=== PATIENT | female | born 1930 ===

== ENCOUNTER → 2017-10-03 | Outpatient (CLI) | payer OTHER ==
--- NOTE | 2017-10-03 09:11 | DIAGNOSTIC IMAGING REPORT ---
R KNEE 3 VIEWS CLINICAL HISTORY: CHRONIC B/L KNEE PAIN pain COMPARISON: None. DISCUSSION: Severe degenerative change medial joint compartment and patellofemoral joints both knees. Moderate degenerative changes lateral joint compartments. Moderate peripheral osteophytic change throughout. No significant joint effusions. There is no evidence for soft tissue swelling. IMPRESSION: Significant degenerative change of the medial and patellofemoral joint compartments bilaterally. Moderate degenerative change lateral joint compartments. The above report was generated using voice recognition software. It may contain grammatical, syntax or spelling errors. Electronically signed by: Shahab Jimenez M.D. 10/03/2017 9:10 AM Dictated Date/Time: 10/03/2017 9:09 AM
== END | disposition home or self-care (01) ==
LOC: C.RDSM 08:45
PROVIDERS: ATTEND Internal Medicine
DX: M25.561 Pain in right knee (principal); M25.562 Pain in left knee; Z88.7 Allergy status to serum and vaccine

== ENCOUNTER 2019-08-04 05:02 | Inpatient (IN) ==
--- NOTE | 2019-07-22 09:49 | PAT Medication Instructions ---
Medication Instructions Date of Service July 22, 2019 Home Medications acetaminophen [Tylenol Extra Strength] 500 mg PO UD PRN amlodipine 5 mg PO QAM colchicine [Colcrys] 0.6 mg PO QAM diphenhydramine HCl [Benadryl] 25 mg PO HS PRN ezetimibe 10 mg PO QAM febuxostat [Uloric] 80 mg PO QAM hydrochlorothiazide 12.5 mg PO QAM melatonin 1 tab PO HS prednisone 1 dose PO UD PRN losartan 100 mg PO QAM Continue as directed prednisone 1 dose PO UD PRN (if needed) STOP taking 24 hours before surgery colchicine [Colcrys] 0.6 mg PO QAM febuxostat [Uloric] 80 mg PO QAM DO NOT take the morning of surgery hydrochlorothiazide 12.5 mg PO QAM losartan 100 mg PO QAM Take morning of surgery With a small sip of water, OTHERWISE NOTHING TO EAT OR DRINK AFTER MIDNIGHT: acetaminophen [Tylenol Extra Strength] 500 mg PO UD PRN (okay to take up to 4 hours prior to surgery if needed) amlodipine 5 mg PO QAM ezetimibe 10 mg PO QAM Take evening before surgery acetaminophen [Tylenol Extra Strength] 500 mg PO UD PRN (if needed) diphenhydramine HCl [Benadryl] 25 mg PO HS PRN (if needed) melatonin 1 tab PO HS Other Notes If you have any questions please call us at [phone] or [phone] or [phone] or [phone]
--- NOTE | 2019-07-22 14:33 | Anesthesiology Consultation ---
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 Labs, CRX are WNL. RCRI score is 3.9% Low risk for intermediate risk surgery." Chart Review Chart Review: Acceptable Risk for Surgery and Patient seen in Pre Admission Testing Teaching & Discussion Instructed NPO after midnight before surgery, except medications with 15 cc of water. Medication instructions provided according to the PAT guidelines. History Surgery Operation Date: 08/04/19 08:50 Proposed Procedures p Left Total Knee Arthroplasty - Gagan Mcallister MD Height/Weight Height: 5 ft 1 in Weight: 87.6 kg Allergies Allergy/AdvReac Type Severity Reaction Status Date / Time allopurinol Allergy Unknown Hives Verified 07/19/19 10:20 Tetanus Vaccines and Toxoid Allergy Unknown REACTION Verified 07/19/19 10:20 AT SITE - REDNESS AND SWELLING Medications Home Medications Medication Instructions Recorded Confirmed Last Taken acetaminophen [Tylenol Extra 500 mg PO UD PRN 04/27/18 07/19/19 05/17/18 Strength] amlodipine 5 mg PO QAM 04/27/18 07/19/19 05/20/18 07:00 colchicine [Colcrys] 0.6 mg PO QAM 04/27/18 07/19/19 05/18/18 08:00 diphenhydramine HCl [Benadryl] 25 mg PO HS PRN 04/27/18 07/19/19 05/19/18 21:00 ezetimibe 10 mg PO QAM 04/27/18 07/19/19 05/20/18 07:00 febuxostat [Uloric] 80 mg PO QAM 04/27/18 07/19/19 05/20/18 07:00 hydrochlorothiazide 12.5 mg PO QAM 04/27/18 07/19/19 05/17/18 08:00 melatonin 1 tab PO HS 04/27/18 07/19/19 05/19/18 21:00 prednisone 1 dose PO UD PRN 04/27/18 07/19/19 Unknown losartan 100 mg PO QAM 07/19/19 07/19/19 Unknown Past Medical History Medical History GERD (gastroesophageal reflux disease) History of amputation of toe right, 2/2 gout. History of gout Hx of skin cancer, basal cell NOSE Hyperlipidemia Hypertension Osteoarthritis Stage 3 chronic kidney disease FOLLOWS W/ DR LINA PHILIPPE Exercise / Class Metabolic Activity II 4-5 Yardwork/Stairs/Walk up hill (Does stairs daily, denies CP, occ mild SOB with stairs.) Past Surgical History Surgical History History of hand surgery RT INDEX FINGER History of hysterectomy History of left shoulder replacement History of right shoulder replacement History of total right knee replacement 05/20/2018 [facility] Hx of bladder repair surgery PT REPORTS "FRONTAL REPAIR" BLADDER Hx of colonoscopy Hx of skin cancer, basal cell NOSE Hx of tubal ligation Past Anesthesia History No Hx of Anesthesia Complications and No Family Hx of Anesthesia Complications History of PONV No Hx of PONV and No Hx of Motion Sickness Social History Smoking Status: Never smoker Do You Dip or Chew Tobacco: No Hx Alcohol Use: No Hx Substance Use: No Review of Systems Pt denies any recent chest pain, shortness of breath, palpitations, cough, fever or URI. Physical Exam Vital Signs BP: 139/84 P: 79bpm SPO2: 93% RA T: 98.4 F R: 18 ENMT Mouth: + dental restorations (few crowns); no chipped teeth and no loose teeth Thyromental Distance: > or= 3.5 Finger Breadths (3.5) Mallampati Class: III Neck normal visual inspection; neck extension not limited Respiratory normal respiratory effort Auscultation: lungs clear to auscultation bilaterally Cardiovascular Rate/Rhythm: regular rate and regular rhythm Heart Sounds: no murmur Vessels: no carotid bruit Extremities: no edema Testing Laboratory Results 07/22/19 14:38 07/22/19 14:38 PT 9.9 Seconds (9.0-12.0) 07/22/19 14:38 INR 1.0 (0.9-1.1) 07/22/19 14:38 APTT 25.6 Seconds (21.0-31.0) 07/22/19 14:38 Urine Color Yellow 07/22/19 14:38 Urine Appearance Clear (Clear) 07/22/19 14:38 Urine pH 5.5 (4.5-7.5) 07/22/19 14:38 Ur Specific Mobile 1.023 (1.000-1.030) 07/22/19 14:38 Urine Protein Negative (Negative) 07/22/19 14:38 Urine Glucose (UA) Negative (Negative) 07/22/19 14:38 Urine Ketones Negative (Negative) 07/22/19 14:38 Urine Nitrite Negative (Negative) 07/22/19 14:38 Ur Leukocyte Esterase Negative (Negative) 07/22/19 14:38 Blood Type A Positive 07/22/19 14:38 Antibody Screen NEGATIVE 07/22/19 14:38 Electrocardiogram Date: 07/20/19 Findings: + NSR @ (76 with occasional PVCs) Possible LAE. Inferior infarct, age undetermined. Chest X-Ray Date: 07/22/19 Findings: + NAD Stress Test Date: 07/30/19 Type: exercise Resting EF: 70% Negative stress echocardiogram for ischemia at 103% MPHR. Above average exercise tolerance for age and gender, 135% of predicted, achieving 4.6 METs. Rest echo showed normal LV size and systolic function with no regional wall motion abnormalities. Mild concentric LVH.
--- NOTE | 2019-07-22 15:22 | XRay Report ---
XR chest Pre-admission PA/Lat CLINICAL HISTORY: Preoperative chest COMPARISON STUDY: No previous studies for comparison. FINDINGS: The cardiac and mediastinal contours remain stable. There were minor chronic interstitial p arenchymal opacities within the axillary portion of the right chest. There is no acute parenchymal co nsolidation. There is no failure. There are no pleural effusions. There are bilateral shoulder arthro plasties. IMPRESSION: No active disease in the chest. Electronically signed by: Paul Jimenez M.D. 07/22/2019 3:20 PM
[2019-07-22 16:04] LABS: Basophils # (auto) 0.03 K/uL (0-0.2); Basophils % (auto) 0.3 %; Eosinophils # (auto) 0.38 K/uL (0-0.5); Eosinophils % (auto) 4.1 %; Hematocrit (blood only) 42.2 % (37-47); Hemoglobin 14.1 g/dL (12.0-16.0); Immature Granulocytes # (auto) 0.03 K/uL (0.00-0.02); Immature Granulocytes % (auto) 0.3 %; Lymphocytes # (auto) 2.29 K/uL (1.2-3.4); Mean Corpuscular Hemoglobin 30.8 pg (25-34); Mean Corpuscular Hgb Conc 33.4 g/dL (32-36); Mean Corpuscular Volume 92.1 fL (80-100); Mean Platelet Volume 10.3 fL (7.4-10.4); Monocytes # (auto) 0.82 K/uL (0.11-0.59); Neutrophils # (auto) 5.61 K/uL (1.4-6.5); Neutrophils % (auto) 61.3 %; Platelet Count 280 K/uL (130-400); RDW Coefficient of Variation 13.2 % (11.5-14.5); RDW Standard Deviation 43.9 fL (36.4-46.3); Red Blood Count 4.58 M/uL (4.2-5.4); White Blood Count 9.16 K/uL (4.8-10.8)
[2019-07-22 16:13] LABS: BUN Creatinine Ratio 22.8 (10-20); Est GFR (African American) 62.4; Est GFR (Non-African American) 53.9; Potassium 3.5 mmol/L (3.5-5.1)
[2019-07-22 16:19] LABS: Appearance Urine Clear (Clear); Bilirubin Urine Negative (Negative); Blood Urine Negative (Negative); Color Urine Yellow; Glucose Urine UA Negative (Negative); Ketones Urine Negative (Negative); Leukocyte Esterase Urine Negative (Negative); Nitrite Urine Negative (Negative); Protein Urine Negative (Negative); Specific Gravity Urine 1.023 (1.000-1.030); Urobilinogen Urine Negative (Negative); pH Urine 5.5 (4.5-7.5)
[2019-07-22 16:20] LABS: Partial Thromboplastin Ratio 0.9; Partial Thromboplastin Time 25.6 Seconds (21.0-31.0); Prothrombin Time 9.9 Seconds (9.0-12.0)
--- NOTE | 2019-07-28 09:52 | History and Physical Report ---
DATE OF ADMISSION: 08/04/2019 CHIEF COMPLAINT: Left knee pain. HISTORY OF PRESENT ILLNESS: This 88-year-old white female presents to the office with complaints of left knee pain that has been ongoing for several years. She previously had a right total knee arthroplasty done on 05/20/2018. She has done very well with that. Her left knee pain has progressed and she then elects to proceed with the same on the left. She has tried cortisone injections, Tylenol, Tylenol with Codeine, viscosupplementation, and activity modification without improvement. Pain is affecting her ADLs. It is worse with weightbearing. Preoperative imaging has been obtained. PAST MEDICAL HISTORY: Significant for hypertension, elevated cholesterol, sleep apnea, gout, osteoarthritis, low back pain, GERD, obesity, basal cell skin cancer, and history of stage III kidney disease. PREVIOUS SURGERIES: Bilateral total shoulder arthroplasties 2006 and 2007, partial hysterectomy, tubal ligation, right toe amputation 2016, skin biopsies, right total knee arthroplasty 05/20/2018, Mohs surgery for her nose, finger surgery. ALLERGIES: KNOWN ALLERGY TO ALLOPURINOL AND TETANUS TOXOID. FAMILY HISTORY: Significant for cancer, heart disease, [place], and lung disease. SOCIAL HISTORY: The patient is retired. . No tobacco use. No ETOH use. CURRENT MEDICATIONS: Amlodipine 5 mg p.o. daily, amoxicillin prior to dental visits, Colcrys 0.6 mg p.o. p.r.n., ezetimibe 10 mg p.o. daily, HCTZ 25 mg p.o. daily, losartan unknown dose daily, prednisone 5 mg p.o. daily. REVIEW OF SYSTEMS: A total of 10 systems are reviewed and are significant only for above stated conditions. PHYSICAL EXAMINATION: VITAL SIGNS: Temperature 37.3, O2 sat 98% on room air, pulse 80, BP 122/76, weight 87.5 kg, height 155.5 cm. GENERAL: Well-developed, well-nourished elderly white female in no acute distress. Sitting in a chair. Alert and oriented. SKIN: Warm and dry with fair turgor. No rashes or lesions. No ecchymosis or erythema. No intraarticular effusion. HEENT: Normocephalic, atraumatic. Eyes PERRLA, EOMI. Nares patent bilaterally without turbinate enlargement. Oropharynx without erythema or exudate. No lesions noted. Uvula midline. Oral mucosa moist. Fair dentition. Multiple missing teeth. Multiple fillings. HEART: RRR. No MGR. LUNGS: Clear to auscultation bilaterally. No crackles, rhonchi or wheezing. Good air movement. ABDOMEN: Obese. Bowel sounds present x4, soft, nontender. No organomegaly. No masses. MUSCULOSKELETAL: Left knee evaluation reveals no intra-articular effusion. No redness or warmth. She has full terminal extension. Flexion to around 100 degrees. She does have crepitation with motion. There is focal discomfort with palpation over the medial and lateral joint lines. Stable collateral ligaments. No discomfort with palpation over the patellar tendon or quadriceps tendon. No defect. Intact motor function of the ankle. Ambulatory with an antalgic gait using her cane. Varus alignment. NEUROLOGIC: Cranial nerves II through XII are intact. Gross sensation is intact across left leg by soft touch. Peripheral pulses are 2+. DATA: Radiographic imaging previously obtained in April shows end-stage DJD of the left knee with varus deformity. Periarticular osteophytes, subchondral sclerosis, and joint space narrowing are all present. IMPRESSION: Left knee end-stage degenerative joint disease. PLAN: Postoperative prescriptions for Percocet and Coumadin will be provided at discharge from the hospital. Anticipate discharge to home with home health services. Preoperative lab work, EKG, and chest x-ray have been ordered. She already has seen her PCP for medical clearance. She already has a cane and walker. She did require use of a bulky dressing postoperatively with her last knee surgery. MTDD
[2019-08-04] MEDS ORDERED: ROPIVACAINE 0.5% HCL/PF 150 MG, BUPIVACAINE 0.5% MPF 30 ML, EPINEPHrine 0.15 MG, Ketoro... INFIL SCH (06:00)
[2019-08-04] MEDS ORDERED: CEFAZOLIN 2000MG 2,000 MG/15 ML SYR IV SCH (06:00)
[2019-08-04] MEDS ORDERED: LR 60ML/HR IV SCH (06:00)
[2019-08-04] MEDS ORDERED: LR 500ML BOLUS, THEN 15ML/HR IV SCH (06:00)
[2019-08-04] MEDS: TRANEXAMIC ACID 1,000 MG **IV Pre-op IV SCH ×2 (06:11→06:49)
--- NOTE | 2019-08-04 06:28 | History & Physical Bridge Note ---
Date of Service August 04, 2019 History & Physical Bridge Note I have examined the patient, reviewed the History & Physical and in the interval since the performance of the History & Physical I have noted the following changes of clinical significance:consent obtained. no changes noted
[2019-08-04] MEDS ORDERED: ORTHO JOINT ANESTHETIC ONE (06:38)
[2019-08-04] MEDS ORDERED: fentaNYL citrate 100 MCG/2 ML VIAL ONE (06:40)
[2019-08-04] MEDS ORDERED: MIDAZOLAM HCL 1 MG/ML 2ML VIAL ONE (06:40)
[2019-08-04] MEDS ORDERED: BUPIVACAINE 0.5 % 5 MG/1 ML PF 10ML VIAL ONE (06:41)
[2019-08-04] MEDS ORDERED: ROPIVACAINE 0.5% 5 MG/ML 30 ML VIAL ONE (06:41)
[2019-08-04] MEDS ORDERED: HYDROmorphone INJ 1 MG/ML SYRINGE IV PRN (06:48)
[2019-08-04] MEDS ORDERED: PHENYLEPHRINE 100MCG/ML 5ML SYR IV PRN (06:48)
[2019-08-04] MEDS ORDERED: ATROPINE SULFATE 0.1 MG/ML 10ML SYR IV PRN (06:48)
[2019-08-04] MEDS ORDERED: ePHEDrine sulfate 50 MG/ML AMP IV PRN (06:48)
[2019-08-04] MEDS ORDERED: ONDANSETRON INJ 2 MG/ML 2 ML VIAL IV PRN ×2 (06:48→09:54)
[2019-08-04] MEDS ORDERED: PHENYLEPHRINE 100MCG/ML 5ML SYR ONE (07:26)
[2019-08-04] MEDS ORDERED: PROPOFOL IV EMULSION 10 MG/ML 20 ML VIAL IV ONE (07:26)
[2019-08-04] MEDS ORDERED: ePHEDrine sulfate 50 MG/ML SYR ONE (07:26)
[2019-08-04] MEDS ORDERED: LIDOCAINE HCL 2% 2 ML VIAL/AMP(20MG/ML) INFIL ONE (07:26)
--- NOTE | 2019-08-04 08:29 | Post Operative Brief Note ---
Immediate Post Op Note v1 Date of Surgery August 04, 2019 Pre & Post Diagnosis Operation Date: 08/04/19 07:00 Pre-Op Diagnosis: Left Knee Degnerative Joint Disease Post-Op Diagnosis: Left Knee Degnerative Joint Disease I identified the patient and participated in the time-out.: Yes Procedure Operation Date: 08/04/19 07:00 Actual Procedures p Left Total Knee Arthroplasty(Left) - Gagan Mcallister MD Surgeon Gagan Mcallister MD Data Administrator [facility] Estimated Blood Loss 25 Findings Consistent with Post-Op Diagnosis
--- NOTE | 2019-08-04 08:40 | Operative Report ---
Post Operative Report Pre & Post Diagnosis Operation Date: 08/04/19 07:00 Pre-Op Diagnosis: Left Knee Degnerative Joint Disease Post-Op Diagnosis: Left Knee Degnerative Joint Disease I identified the patient and participated in the time-out.: Yes Procedure Operation Date: 08/04/19 07:00 Actual Procedures p Left Total Knee Arthroplasty(Left) - Gagan Mcallister MD Surgeon MADINA Mcallister MD Engineer Conductor cheryl Estimated Blood Loss 25 Findings Consistent with Post-Op Diagnosis Specimens see operative report Drains none Complications none Disposition Accompanied Patient To Recovery: Yes Disposition: Recovery Room Indications This 88-year-old white female presented to the office with complaints of intractable left knee pain. She had tried conservative care measures without improvement. She previously had a right total knee arthroplasty done just over a year ago. She has been doing well with it. She elected to proceed with the same on the left. Preoperative imaging was obtained. Description of Procedure Patient was administered a spinal anesthetic and then taken to the operating room where she was given sedation. She was prepped and draped in the usual sterile fashion. Please see Dr. Mcallister's operative report for specifics of the procedure. I was present for the entire case from initial patient po sitioning through final wound closure. Assistance was provided in tissue retraction, hemostasis, trial implant placement, final implant placement, and final wound closure. Patient was taken to the recovery room in satisfactory condition. I attest to the content of the Intraoperative Record and any orders documented therein. Any exceptions are noted below.
--- NOTE | 2019-08-04 09:04 | Operative Report ---
DATE OF OPERATION: 08/04/2019 SURGEON: Gagan Mcallister MD STOCK ROOM MANAGER: Andrew Hodges PA-C. No resident or fellow available. PREOPERATIVE DIAGNOSIS: Osteoarthritis, left knee. POSTOPERATIVE DIAGNOSIS: Osteoarthritis, left knee. OPERATION PERFORMED: Cemented left total knee replacement. SUMMARY OF IMPLANTS: Size 3 left femur, posterior cruciate substituting size 3 mobile bearing tray, size 38 patella 3 peg size tibial insert 3 x 10 posterior cruciate substituting, 2 bags of Palacos G cement. ESTIMATED BLOOD LOSS: 25 mL. CRYSTALLOID: Per anesthesia. TOURNIQUET TIME: 45 minutes. PERIOPERATIVE SITUATION: Medically cleared female with intractable knee pain. X-rays reveal end-stage disease with varus alignment, flexion contracture and wants to proceed with knee replacement. She had her other side done and has done well with that. DESCRIPTION OF PROCEDURE: The patient was appropriately identified, site verified, consent verified. Antibiotics confirmed as being given. Consent verified. TXA confirmed as being given. The left lower extremity was prepped and draped in usual routine fashion. Tourniquet inflated to 300 mmHg after exsanguination of limb with a rubber Esmarch bandage for a total of roughly 45 minutes. Midline exposure utilized. Parapatellar arthrotomy performed. Synovectomy completed, osteophytes resected. Distal femur entered. Cruciates resected. Tibia subluxated, menisci resected. Distal femur resected 14 mm, proximal tibia 4 mm, the extension gap was excellent. Final meniscal remnants were removed. The femur was sized to a 3, appropriate cutting block applied. Anterior and posterior condylar and chamfer cuts made. The flexion gap checked. It was excellent. The posterior capsule was then injected. The tibia was then broached and reamed to a size 3. Trial was placed on the femur and tibia with excellent stability and excellent tracking of the patella. The patella was then resected leaving 16 mm. A 38 mm button was applied after the seating holes made. It tracked well. All trial implants were then removed. The wound irrigated with Betadine and Pulsavac, the permanent cemented into position, tibia, femur and patella in that order. After 12 minutes, the tourniquet deflated. After 14 minutes, the knee flexed. No major cement removal was required. Wound was irrigated with Betadine and Pulsavac, permanent liner seated and then the knee closed at 40 degrees of flexion using #2 Vicryl, 2-0 Vicryl and stainless steel clips. Appropriate dressing applied as well as a Wilmer Gordon cotton dressing due to subcutaneous tissue thickness and the patient was transferred to recovery room in satisfactory condition having tolerated the procedure well. DVT prophylaxis with Coumadin. I attest to the content of the Intraoperative Record and any orders documented therein. Any exception s are noted below.
--- NOTE | 2019-08-04 09:19 | XRay Report ---
LEFT KNEE 2 VIEWS History: Left total knee arthroplasty. Degenerative arthritis. Postop. FINDINGS: The patient is status post a left total knee arthroplasty. The hardware is intact. No fract ure or dislocation. Skin santana are in place. IMPRESSION: Left total knee arthroplasty. No evidence for hardware complication. ACT 112: Negative or not required by law. Electronically signed by: Nino Cramer M.D. 08/04/2019 9:18 AM
--- NOTE | 2019-08-04 09:23 | Anesthesiology Progress Note ---
Date of Service August 04, 2019 Anesthesia Post Procedure Vital Signs Vital Signs: Temp Pulse Pulse Pulse Resp BP BP 08/04/19 09:20 36.3 C L 08/04/19 09:15 82 16 107/61 08/04/19 09:10 82 13 112/60 08/04/19 09:06 84 16 127/57 L 08/04/19 09:05 85 12 08/04/19 09:01 83 10 L 08/04/19 09:00 83 17 115/63 08/04/19 08:56 84 17 08/04/19 08:55 85 21 126/69 08/04/19 08:52 82 12 115/60 08/04/19 08:51 84 15 08/04/19 08:50 85 17 08/04/19 08:46 83 17 08/04/19 08:45 85 27 H 118/57 L 08/04/19 08:41 84 14 08/04/19 08:40 84 17 116/58 L 08/04/19 08:39 85 18 08/04/19 08:38 36.5 C 83 87 16 99/61 L 99/61 L 08/04/19 05:43 37 C 89 18 140/97 Pulse Ox 08/04/19 09:20 97 08/04/19 09:15 98 08/04/19 09:10 96 08/04/19 09:06 95 08/04/19 09:05 96 08/04/19 09:01 98 08/04/19 09:00 96 08/04/19 08:56 98 08/04/19 08:55 98 08/04/19 08:52 98 08/04/19 08:51 98 08/04/19 08:50 100 08/04/19 08:46 97 08/04/19 08:45 98 08/04/19 08:41 97 08/04/19 08:40 97 08/04/19 08:39 97 08/04/19 08:38 96 08/04/19 05:43 95 Pain Intensity Left Knee: Pain Intensity: 0 Transfer of Care Handoff Completed per policy Notes Mental Status: alert / awake / arousable Patient Amnestic to Procedure: Yes Nausea / Vomiting: adequately controlled Pain: adequately controlled Airway Patency, RR, SpO2: stable & adequate BP & HR: stable & adequate Hydration State: stable & adequate Neuraxial Anesthesia: was administered and sensory block is resolving Anesthetic Complications: no major complications apparent
[2019-08-04] MEDS ORDERED: MAGNESIUM HYDROXIDE SUSP 30 ML UDC PO PRN (09:54)
[2019-08-04] MEDS ORDERED: HYDROmorphone INJ 0.5 MG/0.5 ML SYR IV PRN (09:54)
[2019-08-04] MEDS ORDERED: NALOXONE HCL 0.4 MG/1 ML VIAL/CARP IV PRN (09:54)
[2019-08-04] MEDS ORDERED: SODIUM CHLORIDE 0.9% 1000ML 1,000 ML IV SCH (09:54)
[2019-08-04] MEDS ORDERED: ALUMINUM/MAGNESIUM SUSP 30 ML UDC PO PRN (09:54)
[2019-08-04] MEDS ORDERED: DiphenhydrAMINE HCL 50 MG/ML VIAL IV PRN (09:54)
[2019-08-04] MEDS ORDERED: METOCLOPRAMIDE HCL INJ 5 MG/ML 2 ML VIAL IV PRN (09:54)
[2019-08-04] MEDS ORDERED: bisacodyL 10 MG SUPP PR PRN (09:54)
[2019-08-04] MEDS: KETOROLAC TROMETHAMINE 15 MG/ML VIAL IV SCH ×3 (11:00→21:23)
[2019-08-04] MEDS: DOCUSATE SODIUM 100 MG CAP PO SCH ×2 (11:18→20:44)
[2019-08-04] MEDS: LOSARTAN POTASSIUM 50 MG TAB PO SCH (11:19)
[2019-08-04] MEDS: COLCHICINE 0.6 MG TAB PO SCH (11:19)
[2019-08-04] MEDS: EZETIMIBE 10 MG TABLET PO SCH (11:20)
[2019-08-04] MEDS: AMLODIPINE BESYLATE 5 MG TAB PO SCH (11:20)
[2019-08-04] MEDS: MULTIVITAMIN TAB PO SCH (11:21)
[2019-08-04] MEDS: hydroCHLOROthiazide 25 MG TAB PO SCH (11:21)
[2019-08-04] MEDS: FEBUXOSTAT 40 MG TABLET PO SCH (11:27)
--- NOTE | 2019-08-04 11:37 | Progress Note ---
DATE: 08/04/2019 SUBJECTIVE: Postop check status post left total knee replacement. The patient is doing well. Denies any chest pain, shortness of breath, fever, chills, nausea, vomiting or headache. OBJECTIVE: Vital signs are stable. She is afebrile. Neurovascular check is resolving, starting to get some active extension of her toes and ankle, can still not quite do a straight leg raise yet. Toes pink and warm. Wound dressing clean, dry and intact. Postop x-rays look excellent. ASSESSMENT: Overall, doing well. Continue with postop care pathway and prepare for discharge tomorrow.
--- NOTE | 2019-08-04 11:42 | Discharge Summary ---
Potential date of discharge is 08/05/2019. CHIEF COMPLAINT: Left knee pain. HISTORY OF PRESENT ILLNESS: The patient underwent elective left total knee replacement. She is doing well, has no major issues today. She notes her pain is well managed. She had a previous total knee done about a year ago. She has done well with that. PAST MEDICAL HISTORY: Remarkable for hypertension, elevated cholesterol, sleep apnea, gout, osteoarthritis, low back pain, GERD, obesity, basal cell skin cancer, history of stage III kidney disease. PAST SURGICAL HISTORY: Previous surgeries include bilateral total shoulder arthroplasties, partial hysterectomy, tubal ligation, toe amputation, skin biopsies, total knee arthroplasty, Mohs surgery. ALLERGIES: ALLOPURINOL, TETANUS TOXOID. FAMILY HISTORY: Remarkable for cancer, heart disease, [place] and lung disease. SOCIAL HISTORY: Reveals she is retired. . No tobacco or alcohol use. PREADMISSION MEDICATIONS: Include amlodipine, amoxicillin p.r.n., Colcrys, ezetimibe, hydrochlorothiazide, losartan, prednisone. REVIEW OF SYSTEMS: Reveals no chest pain, shortness of breath, fever, chills, nausea, vomiting or headache. CURRENT MEDICATIONS: We will add Coumadin to keep INR 1.8-2.2 and p.r.n. pain medication, see prescription. ASSESSMENT: Status post left total knee replacement. Postop x-rays look excellent. Continue with postop care pathway. Have case management review home needs and discharge tomorrow if she does well overnight.
[2019-08-04] MEDS: ACETAMINOPHEN 500 MG TAB PO SCH ×2 (13:49→21:22)
[2019-08-04] MEDS: CEFAZOLIN 2000MG 2,000 MG/15 ML SYR IV SCH ×2 (13:55→22:22)
[2019-08-04] MEDS: ORTHO WARFARIN NOMOGRAM SCH (14:37)
[2019-08-04] MEDS ORDERED: TRANEXAMIC ACID / 0.7% NACL 1,000 MG/100 ML BAG IV SCH (14:44)
[2019-08-04] MEDS ORDERED: WARFARIN SOD 5 MG TAB PO ONE (16:00)
[2019-08-04] MEDS: FERROUS GLUCONATE 324 MG TAB PO SCH (17:44)
[2019-08-04] MEDS: ASCORBIC ACID 500 MG TAB PO SCH (17:44)
[2019-08-04] MEDS: OXYCODONE HCL IR 5 MG TAB (IMMEDIATE RELEASE) PO PRN ×2 (20:43→21:23)
[2019-08-04] MEDS ORDERED: NON-FORMULARY MEDICATION (Melatonin 1 TAB) PO SCH (21:00)
[2019-08-04] MEDS ORDERED: SENNA 8.6 MG TAB PO SCH (21:00)
[2019-08-05] MEDS: ACETAMINOPHEN 500 MG TAB PO SCH (05:03)
[2019-08-05] MEDS: KETOROLAC TROMETHAMINE 15 MG/ML VIAL IV SCH (05:05)
[2019-08-05 05:57] LABS: Hematocrit (blood only) 36.5 % (37-47); Hemoglobin 12.3 g/dL (12.0-16.0); Mean Corpuscular Hemoglobin 30.7 pg (25-34); Mean Corpuscular Hgb Conc 33.7 g/dL (32-36); Platelet Count 254 K/uL (130-400); RDW Coefficient of Variation 13.1 % (11.5-14.5); RDW Standard Deviation 43.7 fL (36.4-46.3); Red Blood Count 4.01 M/uL (4.2-5.4); White Blood Count 15.68 K/uL (4.8-10.8)
[2019-08-05 06:09] LABS: Prothrombin Time 10.5 Seconds (9.0-12.0)
[2019-08-05 06:25] LABS: BUN Creatinine Ratio 21.3 (10-20); Calcium 9.1 mg/dl (8.5-10.1); Creatinine Clr Calc Pharmacy 31.7 ml/min; Est GFR (African American) 45.2; Potassium 3.9 mmol/L (3.5-5.1)
--- NOTE | 2019-08-05 07:18 | Progress Note ---
DATE: 08/05/2019 SUBJECTIVE: Postop day #1 status post left total knee replacement. The patient is comfortable. Denies any chest pain, shortness of breath, fever, chills, nausea, vomiting or headache. OBJECTIVE: Vital signs are stable. She is afebrile. INR is subtherapeutic. Hematocrit stable at 36. Wound dressing clean, dry and intact. Neurovascular check is normal. ASSESSMENT: Doing well. Discharge to home today. Coumadin per nomogram. Give dose before leaving. Follow up in 2 weeks for staple removal.
[2019-08-05] MEDS ORDERED: WARFARIN SOD 5 MG TAB PO ONE (07:30)
[2019-08-05 07:54] VITALS: PULSE 71; TEMP 98.1; O2SAT 93
[2019-08-05] MEDS ORDERED: dexAMETHasone 10 MG in SYRINGE 0 ML IV SCH (08:00)
[2019-08-05] MEDS: FERROUS GLUCONATE 324 MG TAB PO SCH (08:42)
[2019-08-05] MEDS: ASCORBIC ACID 500 MG TAB PO SCH (08:43)
[2019-08-05] MEDS: DOCUSATE SODIUM 100 MG CAP PO SCH (08:43)
[2019-08-05] MEDS: COLCHICINE 0.6 MG TAB PO SCH (08:43)
[2019-08-05] MEDS: MULTIVITAMIN TAB PO SCH (08:44)
[2019-08-05] MEDS: hydroCHLOROthiazide 25 MG TAB PO SCH (08:44)
[2019-08-05] MEDS: AMLODIPINE BESYLATE 5 MG TAB PO SCH (08:45)
[2019-08-05] MEDS: FEBUXOSTAT 40 MG TABLET PO SCH (08:45)
[2019-08-05] MEDS: EZETIMIBE 10 MG TABLET PO SCH (08:45)
[2019-08-05] MEDS: LOSARTAN POTASSIUM 50 MG TAB PO SCH (09:38)
--- NOTE | 2019-08-05 09:45 | Orthopedic Progress Note ---
Date of Service August 05, 2019 Assessment & Plan (1) S/P total knee arthroplasty: Dressing was changed today by me. Anticipate discharge to home with outpatient services after therapy today. PT/OT today. Patient will receive Coumadin 4 mg prior to discharge Follow-up in the office in 2 weeks for staple removal Dressings will be left in place until Friday and then can be changed as needed for soiling Call the office with any other concerns Subjective Patient is seen in her room this morning. She is sitting at the edge of the bed. She is already dressed for departure. She states she is already had her breakfast. She is waiting for PT/OT. She states she did well overnight. She did not require any narcotics. She denies any chest pain, shortness of breath, nausea, vomiting, or abdominal pain. Review of Systems Review of Systems: Unchanged from preop Physical Exam Physical Exam: General: Well-developed, well-nourished, elderly white female, in no acute distress. Sitting on the bed. Alert and oriented. Skin: Warm and dry with good turgor. No rashes or lesions. No ecchymosis or erythema. The patient is not diaphoretic. No abrasions. Musculoskeletal: Left knee evaluation reveals the postoperative bulky dressing to be in place. Upon removal, scant dry blood is on the bandages. [place] are intact. Wound edges are well approximated. No erythema or warmth. No active drainage. Expected postoperative ecchymosis and edema. She is able to perform a straight leg raise. Intact motor function to the ankle and toes. Full terminal extension. Flexion to around 45 degrees. Stands easily. Neurologic: Gross sensation is intact across the left leg by soft touch. Peripheral pulses are 2+. Results & Data Vital Signs (Past 12 Hours) Vital Signs Temp Pulse Resp BP BP Pulse Ox 08/05/19 07:53 36.7 C 71 16 143/83 H 93 08/05/19 04:35 37.0 C 85 16 132/75 96 08/04/19 23:03 36.7 C 88 18 144/69 H 95 Laboratory Results WBCs this morning are 15.6. H&H obtained this morning is 12.3 and 36.5. INR obtained this morning is 1.0.
[2019-08-05 10:01] VITALS: BP 132/75
[2019-08-05] MEDS: ORTHO WARFARIN NOMOGRAM SCH (13:25)
[2019-08-05] MEDS: OXYCODONE HCL IR 5 MG TAB (IMMEDIATE RELEASE) PO PRN (13:31)
== END 2019-08-05 13:42 | disposition home health service (06) | DRG 470 ==
LOC: ASU 05:02 → 3E 08:41